=== PATIENT | female | born 1970 | race Caucasian/White ===

== ENCOUNTER 2019-11-20 08:04 | Day surgery (SDC) | payer OTHER ==
[2019-11-19 16:27] VITALS: BMI 25.7
[2019-11-20 09:29] VITALS: TEMP 97.8
[2019-11-20 09:55] VITALS: BP 141/70; PULSE 81
== END 2019-11-20 09:58 | disposition home or self-care (01) ==
LOC: JASU-ENDO 08:04
PROVIDERS: ATTEND Internal Medicine Gastroenterology
PROC: 0DJD8ZZ Inspection of Lower Intestinal Tract, Via Natural or Artificial Opening Endoscopic (ICD-10-PCS; principal; 2019-11-20 09:00)
DX: R10.9 Unspecified abdominal pain (principal); K63.89 Other specified diseases of intestine; K64.8 Other hemorrhoids
CPT/HCPCS: 81025